=== PATIENT | male | born 1990 | race African-American/Black ===

== ENCOUNTER 2017-11-27 15:05 | Emergency (ER) | payer BC, SELFPAY ==
[2017-11-27] MEDS ORDERED: Metoclopramide HCl 10 MG/2 ML VIAL ONE (16:03)
[2017-11-27] MEDS ORDERED: diphenhydrAMINE 50 MG/ML VIAL ONE (16:03)
--- NOTE | 2017-11-27 16:12 | RAD ---
PORTABLE CHEST 1 VIEW: Date: 11/27/17 Time: 1551 hours HISTORY: Altered mental status, abdominal pain, weakness. FINDINGS: The heart size is normal. The lungs are clear. The bony thorax is normal. IMPRESSION: Normal exam. POS: [facility]
[2017-11-27 16:28] LABS: #Monocytes 0.9 thou/uL (0.11-0.59); #Neutrophils 14.5 thou/uL (1.40-6.50); %Basophils 0.1 % (0.0-1.0); %Eosinophils 0.3 % (0.0-10.0); %Lymphocytes 6.1 % (21.0-51.0); %Monocytes 5.4 % (0.0-10.0); %Neutrophils 88.1 % (42.0-75.0); Hemoglobin 14.9 g/dL (14.0-18.0); Mean Corpuscular HGB CONC 31.5 g/dL (32.0-36.0); Mean Corpuscular Hemoglobin 28.8 pg (27.0-31.0); Mean Corpuscular Volume 91.3 fL (78.0-98.0); Mean Platelet Volume 7.5 fL (7.4-10.4); Platelet Count 217 thou/uL (130-400); RBC Distribution Width 11.7 % (11.5-14.5); Red Blood Cell (RBC) Count 5.16 mill/uL (4.70-6.10); White Blood Cell (WBC) Count 16.4 thou/uL (4.8-10.8)
[2017-11-27 16:43] LABS: ALT (SGPT) 16 U/L (8-55); AST (SGOT) 24 U/L (5-34); Acetaminophen Less than 6.0 mcg/mL (10.0-30.0); Albumin 4.8 g/dL (3.5-5.0); Alcohol 11 mg/dL (Less than 10); Alkaline Phosphatase 63 U/L (40-150); Anion Gap 20 mmol/L (10-20); BUN (Urea Nitrogen) 12 mg/dL (8.9-20.6); Bilirubin, Total 0.7 mg/dL (0.2-1.2); Calc. Creatinine Clearance 0 mL/min (70-130); Calcium 9.7 mg/dL (7.8-10.44); Carbon Dioxide 22 mmol/L (22-29); Chloride 105 mmol/L (98-107); Estimated GFR-MDRD Greater than 90; Globulin 3.3 g/dL (2.4-3.5); Glucose 87 mg/dL (70-105); Magnesium 1.7 mg/dL (1.6-2.6); Potassium 3.6 mmol/L (3.5-5.1); Protein, Total 8.1 g/dL (6.0-8.3); Salicylate Less than 8.0 mg/dL (15.0-30.0); Sodium 143 mmol/L (136-145)
[2017-11-27 17:38] LABS: Bilirubin Negative (Negative); Blood, Urine Negative (Negative); Clarity CLOUDY (Clear); Glucose, Urine (Dipstick) Negative (Negative); Leukocyte Small (Negative); Nitrite Negative (Negative); Protein, Urine (Dipstick) Trace mg/dL (Neg-Trace); Specific Gravity, Urine 1.025 (1.002-1.036); Urobilinogen 0.2 mg/dL (0.2-1.0); pH, Urine 5.5 (5.0-9.0)
[2017-11-27 17:40] LABS: Bacteria/HPF None Seen HPF (None Seen); Pathc Cast-AUWi Flag 1.16 (0-2.49); RBC/HPF 0-3 HPF (0-3); Squamous Epithelial None Seen HPF (0-3)
[2017-11-27 17:42] LABS: Hyaline Casts/LPF 0-3 HYALINE CAST LPF (0-3 Hyaline)
[2017-11-27 17:48] LABS: Amphetamine Not Detected (NotDetected); Barbiturates Screen Not Detected (NotDetected); Benzodiazepine Screen Not Detected (NotDetected); Cocaine Metabolite Screen Not Detected (NotDetected); Medtox Control Line Valid? VALID (VALID); Medtox Reader # READER 1; Methadone Not Detected (NotDetected); Methamphetamine Not Detected (NotDetected); Opiate Screen Not Detected (NotDetected); Oxycodone Screen Not Detected (NotDetected); Phencyclidine (PCP) Not Detected (NotDetected); THC/Cannabinoid Screen Detected (NotDetected); Tricyclic Screen Not Detected (NotDetected)
[2017-11-28 22:10] LABS: Chlamydia by PCR DETECTED (NotDetected); GC by PCR DETECTED (NotDetected)
== END 2017-11-27 18:12 | disposition home or self-care (01) ==
LOC: ERS 15:05
DX: N41.9 Inflammatory disease of prostate, unspecified (principal); N39.0 Urinary tract infection, site not specified; F17.210 Nicotine dependence, cigarettes, uncomplicated; Z79.899 Other long term (current) drug therapy
CPT/HCPCS: 36415; 71045; 80053; 80306; 80307; 81003; 81015; 83735; 85025; 87086; 87491; 87591; 87804; 93005; 96365; 96366; 96375; J1200; J2765

== ENCOUNTER → 2017-12-08 | Day surgery (SDC) | payer BC | LOC: ER/OP 11:07 | PROVIDERS: ATTEND Student in an Organized Health Care Education/Training Program | DX: A54.9 Gonococcal infection, unspecified (principal); A74.9 Chlamydial infection, unspecified ==